=== PATIENT | female | born 1965 | race Caucasian/White ===

== ENCOUNTER 2022-04-03 19:21 | Emergency (ER) | payer MEDICAID ==
[~2022-04-03] VITALS: Ht 170.2 cm; Wt 59.1 kg
[~2022-04-03 19:21] MED LIST: ACET-3068 PO; DICL-343 PO; FLUO10CA66 PO; FLUO20CA39 PO
[2022-04-03 19:34] VITALS: BP 141/86
== END 2022-04-03 21:48 | disposition left against medical advice (07) ==
LOC: ER 19:21
DX: L29.9 Pruritus, unspecified (principal); J02.9 Acute pharyngitis, unspecified; Z72.89 Other problems related to lifestyle; Z79.899 Other long term (current) drug therapy
CPT/HCPCS: 99281

== ENCOUNTER 2022-09-13 01:17 | Emergency (ER) | payer MEDICAID ==
[~2022-09-13] VITALS: Ht 170.2 cm; Wt 59.1 kg
[2022-09-13] MEDS ORDERED: BUPR100T13 PO (06:10)
[2022-09-13] MEDS ORDERED: LISI20TA28 PO (06:10)
[2022-09-13 07:26] LABS: BASOPHILS # (AUTO) 0.1 X10'3 (0-0.2); BASOPHILS % (AUTO) 1.4 % (0-1); EOSINOPHILS # (AUTO) 0.6 X10'3 (0-0.9); EOSINOPHILS % (AUTO) 9.4 % (0-6); HEMATOCRIT 42.6 % (35.0-45.0); HEMOGLOBIN 14.1 g/dl (12.0-16.0); LYMPHOCYTES # (AUTO) 2.3 X10'3 (1.1-4.8); LYMPHOCYTES % (AUTO) 36.1 % (21-51); MEAN CORPUSCULAR HEMOGLOBIN 31.2 PG (27.0-31.0); MEAN CORPUSCULAR VOLUME 94.5 FL (78-98); MEAN PLATELET VOLUME 7.4 FL (7.4-10.4); MONOCYTES # (AUTO) 0.6 X10'3 (0-0.9); MONOCYTES % (AUTO) 9.8 % (2-12); NEUTROPHILS # (AUTO) 2.8 X10'3 (1.8-7.7); NEUTROPHILS % (AUTO) 43.3 % (42-75); PLATELET COUNT 360 X10'3 (140-440); RED BLOOD COUNT 4.51 X10'6 (4.20-5.60); RED CELL DISTRIBUTION WIDTH 13.6 % (11.5-14.5); WHITE BLOOD COUNT 6.4 X10'3 (4.5-11.0)
[2022-09-13 07:38] VITALS: BP 118/91
[2022-09-13 07:44] LABS: ALANINE AMINOTRANSFERASE 23 U/L (12-78); ALBUMIN 3.9 G/DL (3.4-5.0); ALKALINE PHOSPHATASE 86 IU/L (46-116); ANION GAP 7 (8-16); ASPARTATE AMINO TRANSFERASE 20 U/L (10-37); BILIRUBIN,TOTAL 0.3 MG/DL (0.1-1.0); BLOOD UREA NITROGEN 21 MG/DL (7-18); BUN/CREATININE RATIO 23.6 (6.6-38.0); CALCIUM 9.3 MG/DL (8.5-10.1); CHLORIDE 102 MMOL/L (99-107); CREATININE 0.89 MG/DL (0.40-0.90); GLUCOSE 108 MG/DL (70-104); POTASSIUM 3.8 MMOL/L (3.5-5.1); SODIUM 138 MMOL/L (135-145); TOTAL CARBON DIOXIDE 29.3 MMOL/L (24-32); TOTAL PROTEIN 7.7 G/DL (6.4-8.2); eGFR 66 ML/MIN
== END 2022-09-13 08:07 | disposition home or self-care (01) ==
LOC: ER 01:17
DX: K64.4 Residual hemorrhoidal skin tags (principal); I10 Essential (primary) hypertension; Z72.89 Other problems related to lifestyle; Z79.899 Other long term (current) drug therapy
CPT/HCPCS: 36415; 80053; 85025; 99283

== ENCOUNTER → 2023-10-12 | Outpatient (CLI) | payer MEDICAID ==
[~2023-10-12] MED LIST changes: -ACET-3068 PO; +BUPR100T13 PO; -DICL-343 PO; -FLUO10CA66 PO; -FLUO20CA39 PO; +LISI20TA28 PO
== END | disposition home or self-care (01) ==
LOC: RAD 07:40
PROVIDERS: ATTEND Family Medicine
DX: M18.12 Unilateral primary osteoarthritis of first carpometacarpal joint, left hand (principal); M25.532 Pain in left wrist
CPT/HCPCS: 73110; 73130

== ENCOUNTER 2023-12-14 12:06 | Emergency (ER) | payer MEDICAID ==
[~2023-12-14] VITALS: Ht 170.2 cm; Wt 66.2 kg
[2023-12-14 13:03] VITALS: BP 120/86; PULSE 89; RESP 16; TEMP 98; O2SAT 98
[2023-12-14] MEDS ORDERED: POLOS EACHEYE (13:55)
== END 2023-12-14 14:08 | disposition home or self-care (01) ==
LOC: ER 12:07
DX: H01.00A Unspecified blepharitis right eye, upper and lower eyelids (principal); Z79.899 Other long term (current) drug therapy; I10 Essential (primary) hypertension; Z72.89 Other problems related to lifestyle
CPT/HCPCS: 99283

== ENCOUNTER 2024-04-04 22:12 | Emergency (ER) | payer MEDICAID ==
[~2024-04-04] VITALS: Ht 170.2 cm; Wt 63.6 kg
[2024-04-04 23:40] VITALS: RESP 16; TEMP 97.5
[2024-04-05 00:03] VITALS: BP 131/75; PULSE 97; O2SAT 99
== END 2024-04-05 00:23 | disposition home or self-care (01) ==
LOC: ER 22:13
DX: S90.822A Blister (nonthermal), left foot, initial encounter (principal); I10 Essential (primary) hypertension; Z88.8 Allergy status to other drugs, medicaments and biological substances; Z72.89 Other problems related to lifestyle; X58.XXXA Exposure to other specified factors, initial encounter; Y93.89 Activity, other specified; Y92.89 Other specified places as the place of occurrence of the external cause; Y99.8 Other external cause status
CPT/HCPCS: 99281; 99282

== ENCOUNTER 2025-01-29 08:56 | Outpatient (CLI) | payer MEDICAID ==
--- NOTE | 2025-01-29 15:45 | RADIOLOGY REPORT ---
Procedure: CT CTA ABDOMEN PELVIS HISTORY: SPLENIC ARTERY ANEURYSM Comparison Study: None Exam Date:01/29/2025 09:17 AM TECHNIQUE: CTA scanner volumetric data acquisition of abdomen and pelvis was obtained following intravenous admi nistration of intravenous contrast without any reported adverse effects. Axial images were reconstruc trudy and additional sagittal and coronal images were reformatted. Arterial phase imaging were performe d. Postprocessing was also performed on a separate workstation. 3 D images were performed on a dedicated workstation and reviewed for reporting. CONTRAST: Type of contrast: Omni 350 Contrast injected: 100 ml Radiation dose : CT Dose: CTDI volume is 17 mGy. Dose-length product is 879 mGy*cm FINDINGS: Vascular: Aortic measurements: aortic hiatus 20 mm, suprarenal abdominal aorta 16 mm and infrarenal aorta 16 m m. There is normal caliber of abdominal aorta without evidence of aortic dissection or aneurysm. Calci fied plaque in the proximal left renal artery likely results in a moderate stenosis. Distal splenic a rtery aneurysm measuring up to 16 mm with mild peripheral thrombus. The celiac, superior mesenteric, right renal, iliac and femoral arteries are patent without any focal stenosis or aneurysm. Lung Bases: No acute or significant lung base finding. Normal heart size. No pleural or pericardial effusion. Liver: The liver is normal in size. No focal lesions. Normal hepatic vascular enhancement. Gallbladder and biliary Tree: Unremarkable Spleen: Unremarkable Pancreas: The pancreas is normal in appearance without focal lesions or abnormal enhancement. Adrenal Glands: Unremarkable Kidneys: Kidneys demonstrate normal symmetric enhancement without focal lesions, calculi or hydroneph rosis. Bladder: Unremarkable Bowel: Small sliding-type hiatal hernia. Small bowel and colon are normal in caliber and distribution . Normal appendix is visualized in the right lower quadrant without findings of appendicitis. Ascites: Absent Lymphadenopathy: No mesenteric, retroperitoneal or periportal lymphadenopathy. Abdominal wall and Mesentery: Unremarkable. Pelvic Organs: The uterus is surgically absent. Musculoskeletal: No aggressive focal bony lesions, acute fractures or dislocation. IMPRESSION: 1. No evidence of aortic aneurysm, dissection, or intramural hematoma. 2. Likely moderate stenosis of the proximal left renal artery. 3. 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 Vascular surgery and/or interventional radiology evaluation is recommended. 4. Small sliding-type hiatal hernia. HS:Y
== END 2025-01-29 23:59 | disposition home or self-care (01) ==
LOC: RAD 08:56
PROVIDERS: ATTEND Family Medicine
DX: K44.9 Diaphragmatic hernia without obstruction or gangrene (principal); I72.8 Aneurysm of other specified arteries; Z90.710 Acquired absence of both cervix and uterus
CPT/HCPCS: 74174; Q9967

== ENCOUNTER 2025-05-23 14:34 | Outpatient (CLI) | payer MEDICAID ==
--- NOTE | 2025-05-26 18:52 | RADIOLOGY REPORT ---
EXAM: DI KNEE 3 VWS INDICATION: LEFT KNEE PAIN TECHNIQUE: 3 views of the left knee COMPARISON: None FINDINGS/IMPRESSION: No radiographic evidence of an acute osseous abnormality. There is no acute fracture, osseous malalignment, or aggressive focal osseous lesion. There is no radiographically apparent joint space narrowing.
== END 2025-05-23 23:59 | disposition home or self-care (01) ==
LOC: RAD 14:34
PROVIDERS: ATTEND General Practice
DX: M25.562 Pain in left knee (principal)
CPT/HCPCS: 73562

== ENCOUNTER 2025-05-30 00:27 | Emergency (ER) | payer MEDICAID ==
[~2025-05-30] VITALS: Ht 167.6 cm; Wt 71.0 kg
[2025-05-30 00:41] VITALS: TEMP 96.3
--- NOTE | 2025-05-30 00:45 | ELECTROCARDIOGRAPH REPORT ---
[facility] Test Date: 2025-05-30 Test Time: 00:35:18 Pat Name: PEDRO RIBEIRO Department: EMERGENCY ROOM [id number] Room: Gender: F [employer]: : 1965 Requested By: YEN CARDOZA Order Number: [id number] Reading MD: Dr. LEILA Andrews Measurements Intervals [place] Rate: 92 P: 84 NH: 168 QRS: 50 QRSD: 79 T: 49 QT: 368 QTc: 456 Interpretive Statements Sinus rhythm Electronically Signed On 05-30-2025 13:00:[address] LEILA Andrews Please click the below link to view image of tracing.
[2025-05-30 01:10] LABS: MEAN PLATELET VOLUME 8.3 FL (7.4-10.4); RED CELL DISTRIBUTION WIDTH 19.6 % (11.5-14.5)
--- NOTE | 2025-05-30 01:10 | Physician Documentation ---
History of Present Illness ~ Chief Complaint: Chest Pain Stated Complaint: CHEST PAIN Time Seen by MD: 01:09 Primary Medical Doctor: [facility] Patient presents to the emergency room for evaluation of left-sided chest pain that has been going on for three days. Pain that has exacerbated with palpation. She does have history of high blood pressure but denies history of smoking hyperlipidemia or diabetes. She denies first-degree relative with heart disease. Medication Reconciliation Allergies: Coded Allergies: No Known Allergies (Unverified , 05/30/25) Scheduled Bupropion Hcl (Wellbutrin), Unknown Dose PO TID, (Reported) Lisinopril (Lisinopril), Unknown Dose PO DAILY, (Reported) Past Medical History Past Medical History: Hypertension Past Surgical History: no surgical history Alcohol Use: Occasionally Drug Use: none Lives In: Home Review of Systems ROS All review of systems negative except as per HPI Physical Exam Vital Signs: Temperature: 96.3, Source: Temporal, Heart Rate: 97, Respiratory Rate: 15, BP: 161/107, Pulse Oximetry: 97, Weight: 71.000 Physical Exam General: Patient is awake, alert, oriented x4 in no acute distress and well appearing.~ Head: Normocephalic and atraumatic. Eyes: Conjunctival normal. EOMI. PERRL. ENT: Mucous membranes moist. Neck: Supple, trachea is midline. Chest: Clear to auscultation bilaterally without rales, rhonchi, or wheezes. There is no accessory muscle use or retractions. Tenderness to palpation to left chest wall Cardiac: RRR without murmurs, gallops, or rubs. Abd: Soft, nondistended, nontender, with normoactive bowel sounds. No guarding, rebound, or rigidity. Extremities: Normal strength. Normal range of motion. No deformities or edema. No calf tenderness to palpation Progress Results/Orders Results/Orders Orders - ANGEL LITTLE MD Chest,Single View (05/30/25 00:43) Monitor (05/30/25 00:43) Saline Lock (05/30/25 00:43) Oxygen (05/30/25 00:43) Hs Troponin I W Calculations (05/30/25 02:43) Hs Troponin I W Calculations (05/30/25 03:43) Completed Orders - ANGEL LITTLE MD Chest,Single View (05/30/25 00:43) Cbc/Diff (05/30/25 00:43) BMP (05/30/25 00:43) PBNP (05/30/25 00:43) Electrocardiogram (05/30/25 00:43) Hs Troponin I W Calculations (05/30/25 00:43) Vital Signs 05/30/25 11 00:41 01:25 Temp 96.3 Pulse 97 Resp 15 16 B/P (MAP) 161/107 Pulse Ox 97 Laboratory Tests Test 05/30/25 00:37 White Blood Count 7.8 Red Blood Count 4.25 Hemoglobin 10.5 L Hematocrit 32.9 L Mean Corpuscular Volume 77.2 L Mean Corpuscular Hemoglobin 24.7 L Mean Corpuscular Hemoglobin Concent 32.0 L Red Cell Distribution Width 19.6 H Platelet Count 422 Mean Platelet Volume 8.3 Neutrophils (%) (Auto) 52.6 Lymphocytes (%) (Auto) 30.6 Monocytes (%) (Auto) 8.4 Eosinophils (%) (Auto) 7.4 H Basophils (%) (Auto) 1.0 Neutrophils # (Auto) 4.1 Lymphocytes # (Auto) 2.4 Monocytes # (Auto) 0.7 Eosinophils # (Auto) 0.6 Basophils # (Auto) 0.1 CBC Comment Sodium Level 144 Potassium Level 3.8 Chloride Level 107 Carbon Dioxide Level 27.4 Anion Gap 10 Blood Urea Nitrogen 13 Creatinine 0.86 Estimated GFR/1.73 m2 68 BUN/Creatinine Ratio 15.1 Glucose Level 96 Calcium Level 8.6 Troponin I High Sensitivity 5 Pro-B-Type Natriuretic Peptide 77 Albumin 3.4 Chemistry Comments EKG/XRAY/CT/US/VASC/MRI EKG : Additional Comment EKG interpreted by myself shows time of 0035, rate 92, sinus rhythm, normal axis, no ST changes Chest X-Ray : Additional Comments Exam: CHEST,SINGLE VIEW CHEST RADIOGRAPH Indication: CP Technique: Single frontal view of the chest was obtained COMPARISON: None FINDINGS: Lines and Tubes: None Lungs: Clear Pleura: No effusion. No pneumothorax. Cardiomediastinal contours: Unremarkable Bones: Unremarkable IMPRESSION: 1. No acute disease. Medical Decision Making Additional information obtaine: old records Findings Patient presents to the emergency room for evaluation of left-sided chest pain. Differentials include but are not limited to ACS, musculoskeletal pain, pulmonary embolism, aortic pathology therefore emergent labs and imaging indicated. No tachycardia, no hypoxia and no calf tenderness to palpation he had not feel she requires investigation into possible pulmonary embolism. Given tenderness to palpation of left precordium I believe she is suffering from musculoskeletal pain. She is considered low cardiovascular risk based upon her heart score. The need to follow up with her doctor discussed. Analgesics discussed. ER precautions discussed Heart Score: 2 Differential Dx:Considerations: Include: angina, aortic dissection, chest wall pain, cholelithiasis, CHF, costochondritis, esophageal reflux/spasm, gastritis, herpes zoster, myocardial infarction, pericarditis, pleuritis, pancreatitis, pneumonia, pneumothorax, pulmonary embolus, other Departure Disposition: 01 HOME / SELF CARE / HOMELESS Impression: Primary Impression: Chest pain Condition: Stable Discharge Instructions: Nonspecific Chest Pain, Adult Additional Instructions: Ibuprofen and Tylenol may be taken together for your pain. Referrals: NO PRIMARY CARE PROVIDER (PCP) Signature Scribe Signature: No scribe Attestation: The note accurately reflects work and decisions made by me.Angel Little MD 05/30/25 01:52 ANGEL LITTLE MD May 30, 2025 01:10
[2025-05-30 01:22] LABS: CREATININE 0.86 MG/DL (0.40-0.90); PRO BRAIN NATRIURETIC PEPTIDE 77 PG/ML (0-125); TOTAL CARBON DIOXIDE 27.4 MMOL/L (24-32); eCRCL 66 ML/MIN; eGFR 68 ML/MIN
[2025-05-30 01:58] VITALS: BP 132/68; PULSE 84; RESP 16; O2SAT 98
[2025-05-30] MEDS: ibuprofen tablet 400 MG TABLET PO ONE (02:03)
== END 2025-05-30 02:02 | disposition home or self-care (01) ==
LOC: ER 00:28
DX: R07.89 Other chest pain (principal); I10 Essential (primary) hypertension; R06.02 Shortness of breath
CPT/HCPCS: 71045; 80048; 83880; 84484; 85025; 93005; 99285